=== PATIENT | female | born 1985 | race Hispanic/Latino ===

== ENCOUNTER 2019-07-15 08:11 | Outpatient (CLI) | payer OTHER ==
--- NOTE | 2019-07-15 09:35 | ULT ---
GALLBLADDER ULTRASOUND: INDICATIONS: Right upper quadrant pain. FINDINGS: Images of the gallbladder reveal echogenic sludge and multiple small gallstones. There is at least o ne large gallstone in the gallbladder fundus, which measures approximately 2 cm. The common bile duct has a normal caliber at 5 mm. The liver, the visualized pancreas and the right kidney appear unremarkable as imaged. IMPRESSION: Cholelithiasis. Technologist describes a negative Fenton. POS: OFF
== END 2019-07-15 08:12 | disposition home or self-care (01) ==
LOC: BICULT 08:11
PROVIDERS: ATTEND Family Medicine
DX: R10.11 Right upper quadrant pain (principal); K80.20 Calculus of gallbladder without cholecystitis without obstruction
CPT/HCPCS: 76705